=== PATIENT | male | born 1980 | race Caucasian/White ===

== ENCOUNTER 2019-04-19 09:39 | Emergency (ER) | payer SELFPAY ==
[~2019-04-19] VITALS: Ht 165.1 cm; Wt 78.0 kg
[2019-04-19 09:49] VITALS: Ht 165.1 cm; Wt 78.0 kg
[2019-04-19 10:51] VITALS: BP 127/82
== END 2019-04-19 10:51 | disposition home or self-care (01) ==
LOC: ED 09:39
DX: L03.114 Cellulitis of left upper limb (principal); F17.210 Nicotine dependence, cigarettes, uncomplicated; Z71.6 Tobacco abuse counseling
CPT/HCPCS: 99406; J1885